=== PATIENT | female | born 1965 | race African-American/Black ===

== ENCOUNTER 2017-02-16 16:49 | Inpatient (IN) | payer BC ==
[~2017-02-16] VITALS: Ht 162.6 cm; Wt 96.2 kg
--- NOTE | ~2017-02-16 | HC ---
[facility] [place] [address] CONSULTATION Name: JARRETT TRINH Room #: 439-P ADM IN M.R.#: [id number] Admission: 02/16/17 Attend Phys: Mahesh Jean-Baptiste MD Discharge: Date of : 67 Report #: [id number] THIS REPORT FOR: //name// CC: Phil Stallings MD REASON FOR CONSULTATION: Mediastinal adenopathy. HISTORY OF PRESENT ILLNESS: The patient is a very pleasant 51-year-old female from the [place] area who this past Friday began having troubles with sweats, heart pounding, chilling, came to the hospital, was also noted to be tachycardic, had fevers to 103. CAT scan shows mediastinal adenopathy up to 4.2 cm including hilar and pre and possibly subcarinal. Before this, she had not been aware of any headache, fevers or chills previous to this last several days, any family members being sick, any shortness of breath, any significant weight change recently, any skin rash, any mouth sores, any swallowing difficulties, any breathing difficulties, any abdominal pain, any diarrhea or constipation, had had what they thought a bladder infection maybe several weeks ago. No new arm or leg swelling. No skin rash. PAST MEDICAL HISTORY: Notable for a history of tubal ligation, diverticulitis, colon surgery for said diverticulitis with Dr. Stallings, tonsillectomy, hypertension, MRSA, abdominal wound in the past, GERD, also oral surgery with full mouth extraction in the past. FAMILY HISTORY: Mother has hypertension. She is present. Father, she does not know much about his history. One brother, alive and well. No sisters. One son, one daughter alive and well. 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 Her mother had worked there for a large number of years also [place] [address] She does smoke. Alcohol, maybe 2 beverages per week[address] No street drugs. MEDICATIONS: Prior to admission had included hydrocodone, sennosides, amlodipine and potassium and also chlorthalidone. CURRENT MEDICATIONS: Include amlodipine 10, potassium chloride 10 b.i.d., Tylenol p.r.n., Zosyn had been given and I believe 1 dose, has now been held. RADIOLOGIC STUDIES: Here included the CTA per PE protocol that says normal pulmonary artery, nothing to suggest pulmonary embolus and aorta is normal, extensive mediastinal adenopathy. Corresponds to radiographic abnormality largest lymph node in the right paratracheal space and measures 4.2 [place] [address] CONSULTATION Name: JARRETT TRINH Room #: 439-P ADM IN M.R.#: [id number] Admission: 02/16/17 Attend Phys: Mahesh Jean-Baptiste MD Discharge: Date of : 67 Report #: [id number] and 3.5 transverse. There are also enlarged lymph nodes in the aorticopulmonary window bilaterally in subcarinal regions, mild superior mediastinal adenopathy as well. Main differential was lymphoma according to them. CT abdomen and pelvis I have now ordered. LABORATORY TESTS: Include sodium on admission of 125, not yet repeat; potassium was 3.9; BUN was 4; creatinine was 1.4; AST 150, note that it had been normal back in 2014; total bilirubin is 0.7; phosphorus 1.6; alkaline phosphatase 160, two years ago, it was normal range at 90; ALT elevated to 100, in the past was 20; albumin is 2.3, in the past had been 3; LDH 327, had not been done before; CPK normal; iron was 22; TIBC 233; percent saturation 9. Coags had been ordered by myself. White count 10.5; hemoglobin 8, back in 12/2015 had been 11.1; MCV is 86, in the past been 90 and 100 at different times; RDW 16.9; platelet count 493, the past had been 400 and 300 range. Differential, nonacute. Sed rate ordered, pending. UA did show rare white cells, rare red cells, 1-9 bacteria. PHYSICAL EXAMINATION: VITAL SIGNS: Height is 5 feet 4 inches, which is 162.6 cm. Weight is 212 pounds, which is 96.2 kilograms. Blood pressure is 136/75, O2 sat 94%, respirations , pulse 120, temperature 100.4, which is the lowest and was 112 earlier today. MOOD: She is alert and pleasant. NEUROLOGIC: Has good speech pattern, is moving all extremities. LUNGS: Clear with good symmetric expansion. No rhonchi or wheezes. HEART: Regular rate. No tachy. LYMPHATICS: No lymph nodes in the supraclavicular, cervical, axillary region. BREASTS: Deferred. The patient states that she is up-to-date on paps and mammograms. ABDOMEN: Obese, nontender, no masses. EXTREMITIES: Without clubbing, cyanosis or edema. DISCUSSION: Discussed with the patient that we are worried about lymphadenopathy, discussed obtaining CT abdomen and pelvis to look for lymphadenopathy there, also talked about having Cardiothoracic Surgery and Pulmonary see the patient with an eye towards possible biopsy. We will also consult GI to evaluate for iron deficiency. The patient states that she eats a regular meat but blood in her urine or stool, is menopausal for at least 2 years and before that her periods were fairly mild with 3 days of spotting and bleeding. ASSESSMENT AND PLAN: 1. Lymphadenopathy, worrisome for malignancy given sweats and fever, though subacute onset may be related to urinary tract infection. We will do a CT abdomen and pelvis. We will also consult Cardiothoracic Surgery and Pulmonary. 2. Iron deficiency with history of diverticulitis and colonoscopy, I think about 3 years ago. We will consult Dr. Delatorre and Dr. Atwood's group [address] [address] CONSULTATION Name: JARRETT TRINH Room #: 439-P ADM IN M.R.#: [id number] Admission: 02/16/17 Attend Phys: Mahesh Jean-Baptiste MD Discharge: Date of : 67 Report #: [id number] before we begin iron. 3. Bacteriuria and fever, need to consider whether to continue antibiotic. 4. Hypertension. Amlodipine as needed. 5. Electrolytes. Now looks like chlorthalidone has been held and potassium replacement has been begun. Will need cereal management. We will follow with you. <ELECTRONICALLY SIGNED> By: Cali Cui MD 04/10/26 805 08 1201 Cali Cui MD /ngozi
--- NOTE | ~2017-02-16 | O ---
[facility] [place] [address] OPERATIVE REPORT Name: JARRETT TRINH Room #: 439-P [facility] IN M.R.#: [id number] Admission: 02/16/17 Attend Phys: Mahesh Jean-Baptiste MD Discharge: 02/21/17 Date of : 67 Report #: [id number] THIS REPORT FOR: //name// CC: Mahesh Jean-Baptiste DATE OF SERVICE: 02/18/2017 PREOPERATIVE DIAGNOSIS: Mediastinal adenopathy. POSTOPERATIVE DIAGNOSIS: Mediastinal adenopathy. OPERATION: Bronchoscopy and mediastinoscopy. SURGEON: Livan Euceda M.D. ANESTHESIA: General. INDICATIONS: The patient is a 51-year-old with mediastinal adenopathy seen in consultation for Dr. Cui. The patient has a CT scan suspicious for lymphoma. FINDINGS AND TECHNIQUE: After general anesthesia was established, exposure was obtained through a low color incision, pretracheal space was entered after dividing a strap muscles in the midline. Plane was developed down into the mediastinum and then the mediastinoscope was passed. Samples of tumor at level 4 were taken and submitted for pathology, generous tumor samples were provided, touched prep was consistent with the lymphoma, but a definitive diagnosis was not obtained. Hemostasis was ascertained and the wound was closed in layers. The patient was return to the recovery area in good condition. It should be mentioned that the outset of the case, flexible diagnostic bronchoscopy was performed. No endobronchial lesions were noted. The patient tolerated the procedure well and was taken to the recovery area in good condition. All counts reported as correct. <ELECTRONICALLY SIGNED> By: Livan Euceda MD 02/21/17 1933 0819 1138 Livan Euceda MD /nt
--- NOTE | ~2017-02-16 | HC ---
[facility] [place] [address] CONSULTATION Name: JARRETT TRINH Room #: 439-P ADM IN M.R.#: [id number] Admission: 02/16/17 Attend Phys: Mahesh Jean-Baptiste MD Discharge: Date of : 67 Report #: [id number] THIS REPORT FOR: //name// CC: Mahesh Jean-Baptiste MD PRIMARY CARE PHYSICIAN: Mahesh Jean-Baptiste M.D. REASON FOR REFERRAL: Mediastinal adenopathy. HISTORY OF PRESENT ILLNESS: The patient is a 51-year-old -[place] female who presented to the Emergency Room with generalized weakness and febrile illness. A CT chest angiogram was performed. No evidence of pulmonary embolus. This study did not show any evidence of pulmonary embolus; however, mediastinal adenopathy was noted. A pulmonary consultation was requested. The patient states that she has been generally healthy most of her life until about a month ago, she started to feel malaise. She was felt to have urinary tract infection. Antibiotics were given. About 3 days ago, she developed febrile illness and chills and shakiness. With worsening symptoms, she presented to the Emergency Department. She otherwise denies any chest pain or productive cough. She denies any diarrhea, dysuria, hematuria or hematochezia. The patient smokes about less than a half a pack a day for the last 20 years. PAST MEDICAL AND SURGICAL HISTORY: Notable for diverticulitis, undergone partial colectomy. She has hypertension, tobacco abuse as mentioned above, history of abdominal wound infection and gastroesophageal reflux disease, bilateral tubal ligation. She has had oral surgery with total tooth extraction. ALLERGIES: None to medications. HOME MEDICATIONS: Include hydrocodone, senna, Norvasc, ____ and chlorthalidone. FAMILY HISTORY: Mother is in good health. Status of the father is unknown. SOCIAL HISTORY: She is single, has 2 children, they are in good health. She smokes half a pack a day. She drinks occasionally. She works as a computer mechanic. REVIEW OF SYSTEMS: As mentioned above, otherwise 10-point system review negative. PHYSICAL EXAMINATION: GENERAL: She is awake and alert, in no apparent distress. [facility] [address] [place] [address] CONSULTATION Name: JARRETT TRINH Room #: 439-P [facility] IN [facility].#: [id number] Admission: 02/16/17 Attend Phys: Mahesh Jean-Baptiste MD Discharge: Date of : 67 Report #: [id number] VITAL SIGNS: Temperature maximum was 103.2 degrees Fahrenheit, currently is 100.3 degrees Fahrenheit, pulse is 125, respiratory rate is 20, blood pressure 138/80 mmHg and saturation is 96%. HEENT: Normocephalic and atraumatic. NECK: Supple, without lymphadenopathy or thyromegaly. CHEST: Breath sounds are clear bilaterally without any rales or wheezes. CARDIOVASCULAR: Normal S1 and S2. There are no murmurs or gallop. There is no JVD. There is no carotid bruit. Pulses are 2+/4+ bilaterally. ABDOMEN: Soft and nontender, no organomegaly or masses felt. GENITOURINARY: Deferred. RECTAL: Deferred. EXTREMITIES: There is no edema, cyanosis or clubbing. LABORATORY DATA: CT chest angiogram was reviewed. No evidence of pulmonary embolus. Extensive mediastinal and hilar adenopathy is noted. No infiltrates or effusion seen. Haptoglobin is mildly elevated at 593. Iron studies showed low iron level. Sodium 125, potassium 3.9, chloride 89, CO2 is 26, BUN is 10, creatinine is 1.4, albumin 2.3, hemoglobin is 8 with normal indices including MCV and MCH. Platelets are normal. IMPRESSION: 1. Mediastinal adenopathy in this 51-year-old -[place] female. She had about a month's history of constitutional symptoms, but for the past 3 days she has had febrile illness without obvious source. She is anemic along with hyponatremia and with renal insufficiency. Primary concern is possible sarcoidosis versus lymphoma. We will proceed with diagnostic workup. 2. Febrile illness. This may be probably related to mediastinal adenopathy. No obvious source of infection at this time. 3. Electrolyte abnormalities including hyponatremia and acute kidney injury. Note that patient has had abnormal creatinine in the past. This is related to febrile illness and pulmonary process. 4. Anemia, currently undergoing workup. 5. Protein calorie malnutrition, severe with an albumin of 2.3. 6. Tobacco abuse. We will discuss smoking cessation on subsequent followup. 7. Hypertension. 8. Gastroesophageal reflux disease. RECOMMENDATIONS: Discussed the above findings with the patient and the rationale for proceeding with endoscopic ultrasound bronchoscopy. The patient voiced understanding and willing to proceed. Once she is stable, we will proceed with biopsy. I think for the meantime, we will continue antibiotics, follow up cultures. Smoking cessation will be recommended. [facility] [address] [place] [address] CONSULTATION Name: JARRETT TRINH Room #: 439-P ADM IN M.R.#: [id number] Admission: 02/16/17 Attend Phys: Mahesh Jean-Baptiste MD Discharge: Date of : 67 Report #: [id number] DVT and GI prophylaxis will be addressed. Thank you for the consultation. <ELECTRONICALLY SIGNED> By: Adrián Walsh MD 02/18/17 1543 1145 1917 Adrián Walsh MD /nt
--- NOTE | ~2017-02-16 | 2DMMODE ---
[facility] [address] [place] [address] 2 D/M-MODE ECHOCARDIOGRAM Name: JARRETT TRINH Room #: 439-P [facility] IN M.R.#: [id number] Admission: 02/16/17 Attend Phys: Mahesh Jean-Baptiste, Discharge: Date of : 67 Date of Service: 02/21/17 0959 Report #: [id number] THIS REPORT FOR: //name// APPROVED REPORT Study performed: 02/21/2017 09:04:35 EXAM: Comprehensive 2D, Doppler, and color-flow Echocardiogram Patient Location: Bedside Room #: 439 Blood Pressure: 133/64 mmHg HR: 117 bpm Rhythm: Tachycardia Other Information Study Quality: Adequate Indications Risk for cardiac dysfunction. Pre chemo evaluation. 2D Dimensions RVDd: 29.95 mm LVEF(%): 67.49 (>50%) IVSd: 10.46 (7-11mm) LVOT Diam: 19.78 (18-24mm) LVDd: 36.45 mm PWd: 10.86 (7-11mm) Ascending Aorta: 26.07 mm LVDs: 23.05 (25-40mm) Aortic Root: 30.25 mm Gonzalez's LVEF: 67.49 % Volumes Left Atrial Volume (Systole) Single Plane 4CH: 30.74 mL Single Plane 2CH: 48.01 mL LA ESV Index: 21.00 mL/m2 Aortic Valve AoV Peak Les.: 1.87 m/s AO Peak Gr.: 14.02 mmHg LV Max P.85 mmHg LV Max: 1.40 m/s Mitral Valve E/A Ratio: 1.1 MV Decel. Time: 139.12 ms MV E Max Les.: 0.90 m/s [facility] [address] [place] [address] 2 D/M-MODE ECHOCARDIOGRAM Name: JARRETT TRINH Room #: 439-[facility] IN .R.#: [id number] Admission: 02/16/17 Attend Phys: Mahesh Jean-Baptiste, Discharge: Date of : 67 Date of Service: 02/21/17 0959 Report #: [id number] A Les.: 0.81 m/s MV PHT: 40.34 ms Pulmonary Valve PV Peak Les.: 1.00 m/s PV Peak Gr.: 4.03 mmHg Tricuspid Valve RAP Estimate: 5.00 mmHg Left Ventricle The left ventricle is normal size. There is normal LV segmental wall motion. There is normal left ventricular wall thickness. Left ventricular systolic function is hyperdynamic. LVEF is 65-70%. Difficult to assess diastolic function due to tachycardia. Right Ventricle The right ventricle is normal size. The right ventricular systolic function is normal. Atria The left atrium size is normal. The right atrium size is normal. Aortic Valve Aortic valve leaflets appear grossly normal No aortic regurgitation is present. There is no aortic valvular stenosis. Mitral Valve The mitral valve is normal in structure. There is no mitral valve regurgitation noted. Tricuspid Valve The tricuspid valve is normal in structure. There is no tricuspid valve regurgitation noted. Pulmonic Valve Pulmonic valve is not well visualized. Great Vessels The aortic root is normal in size. The ascending aorta is normal in size. IVC is normal in size and collapses >50% with inspiration. Pericardium Small pericardial effusion. [facility] [address] [place] [address] 2 D/M-MODE ECHOCARDIOGRAM Name: GAYATHRIJARRETT Room #: 439-P [facility] IN M.R.#: [id number] Admission: 02/16/17 Attend Phys: Mahesh Jean-Baptiste, Discharge: Date of : 67 Date of Service: 02/21/17958 Report #: [id number] <Conclusion> Left ventricular systolic function is hyperdynamic. There is normal LV segmental wall motion. LVEF 65-70%. Aortic valve leaflets appear grossly normal There is no aortic valvular stenosis or insufficiency. The mitral valve is normal in structure. There is no mitral valve regurgitation. Pulmonary artery pressure could not be reliably ascertained. Small pericardial effusion. <ELECTRONICALLY SIGNED> By: Gurvinder Melendez MD, [facility] 02/21/1759 8 0959 Gurvinder Melendez MD, FACC /INF
--- NOTE | ~2017-02-16 | HC ---
[facility] [place] [address] CONSULTATION Name: JARRETT TRINH Room #: 439-P ADM IN M.R.#: [id number] Admission: 02/16/17 Attend Phys: Mahesh Jean-Baptiste MD Discharge: Date of : 67 Report #: [id number] THIS REPORT FOR: //name// CC: Mahesh Jean-Baptiste DATE OF SERVICE: 02/17/2017 The patient's primary care physician is Dr. Mahesh Jean-Baptiste. The patient also is seeing Dr. Cui. HISTORY OF PRESENT ILLNESS: The patient was admitted for weakness and shakiness which started approximately 4 days ago. She has been previously treated for a UTI. PAST MEDICAL HISTORY: As follows: Hypertension, GERD and has had a previous MRSA for abdominal wound. PAST SURGICAL HISTORY: Colon resection for diverticulitis, tubal ligation. SOCIAL HISTORY: The patient is single, has 2 children, smokes half a pack of cigarettes per day for the last 22 years. Occasionally drinks alcohol. Denies any illicit drug use. FAMILY HISTORY: Mother is living and 69 in good health. The patient is unaware of father's status. ALLERGIES: No known drug allergies. MEDICATIONS: As follows: Amlodipine 10 mg and potassium 10 mEq. REVIEW OF SYSTEMS: A 12-point review of systems completed. CONSTITUTIONAL: The patient does have fever and chills with sweats. Denies any fatigue or difficulty sleeping. HEENT: Denies any headaches, vertigo, or hearing loss. RESPIRATORY: Denies shortness of breath, dyspnea on exertion. Denies orthopnea. Does complain of occasional dry cough. CARDIOVASCULAR: Denies chest pain, jaw pain, arm pain or murmurs. SKIN: Denies any rashes, psoriasis or eczema. ENDOCRINE: Denies cold feet. Does have night sweats recently. Denies lack of concentration. GASTROINTESTINAL: Denies nausea, vomiting, diarrhea or constipation. GENITOURINARY: Does have urinary frequency. Denies hematuria or dysuria. NEUROLOGIC: Denies seizures or neuropathy. PSYCHOLOGIC: Denies hallucinations, depression or anxiety. MUSCULOSKELETAL: Joint pain, swelling, stiffness. Denies any leg claudication. IMMUNOLOGIC: Denies any lupus, rheumatoid arthritis or celiac disease. [facility] [address] [place] [address] CONSULTATION Name: JARRETT TRINH Room #: 439-P [facility] IN ..#: [id number] Admission: 02/16/17 Attend Phys: Mahesh Jean-Baptiste MD Discharge: Date of : 67 Report #: [id number] PHYSICAL EXAMINATION: VITAL SIGNS: Blood pressure is 136/75, pulse of 120 in sinus rhythm, sinus tachycardia, respirations 21, temperature is 38.0, O2 sat of 94%. GENERAL: The patient is well developed, well nourished. Has normal speech and mentation. HEENT: Eyes are PERRLA. The patient is normocephalic. Gaze appearing conjugate in all positions. No evidence of nystagmus. CARDIOVASCULAR: Shows regular rate and rhythm, S1, S2, without murmur, gallops, thrills. LUNGS: Clear and equal. ABDOMEN: Soft, nontender. Bowel sounds present in all 4 quadrants. SKIN: Shows normal color and normal turgor. MUSCULOSKELETAL: Has 5/5 strength in upper and lower extremity. NEUROLOGIC: Cranial nerves 2-12 are examined and intact. PSYCHIATRIC: The patient is alert and oriented x 3. LABORATORY DATA: Sodium is 125, potassium 3.9, chloride is 89, CO2 is 26, BUN is 10, creatinine is 1.4. White blood cell count is 10.5, hemoglobin 8.0, hematocrit 23.4, platelets are 439. Alkaline phosphatase is 160, AST is 150 and ALT is 100. ASSESSMENT: 1. Hilar lymphadenopathy. 2. Fevers. 3. Tachycardia. 4. Anemia. 5. Increased LFTs. 6. Hyponatremia. PLAN: The patient is scheduled for CT abdomen and pelvis today. Dr. Euceda will follow up and discuss with the patient regarding mediastinoscopy and possible scheduling of this surgery. He will also discuss complications and risks, benefits with the patient as well. Thank you for the consultation. By: 1134 [id number] DAVID Clemons /nt
--- NOTE | ~2017-02-16 | EKG ---
[address] [place] [place] [address] ELECTROCARDIOGRAM REPORT Name: JARRETT TRINH Room #: 439-P ADM IN M.R.#: [id number] Admission: 02/16/17 Attend Phys: Mahesh Jean-Baptiste MD Discharge: Date of : 67 Report #: [id number] THIS REPORT FOR: //name// [facility] ED Test Date: 2017-02-16 Test Time: 17:05:32 Pat Name: JARRETT TRINH Department: Room: 439 Gender: F Molder Trimmer: [place] : 1965 Requested By: Leigh Ann Shultz Order Number: [id number] MD: Gurvinder Melendez Measurements Intervals [place] Rate: 153 P: 79 TX: 136 QRS: 77 QRSD: 75 T: 0 QT: 249 QTc: 398 Interpretive Statements Sinus tachycardia Poor R wave progression No previous ECG available for comparison Electronically Signed On 02-17-2017 8:31:41 CDT by Gurvinder Melendez [email or web address] <ELECTRONICALLY SIGNED> By: Gurvinder Melendez MD, [facility] 02/17/17 0831 1705 1705 Gurvinder Melendez MD, FACC /EPI
--- NOTE | ~2017-02-16 | S ---
[facility] [address] [place] [address] SURGICAL PATH RPT PROCEDURE Name: JARRETT TRINH Room #: 439-P [facility] IN M.R.#: [id number] Admission: 02/16/17 Date of : 67 Discharge: Report #: [id number] Path Case #: [id number] PATHOLOGY REPORT COLLECTION DATE: 02/18/2017 RECEIVED DATE: 02/18/2017 SUBMITTING PHYS: Dr. Livan Euceda OTHER PHYS: Dr. Mahesh Jean-Baptiste SPECIMEN(S) RECEIVED: A.Right paratracheal lymph node - tp B.Right paratracheal lymph node * * * * * * * * * * * * FINAL DIAGNOSIS: A. "Right paratracheal lymph node-tp," biopsy: - LYMPH NODE WITH CLASSIC HODGKIN LYMPHOMA. (SEE COMMENT) B. "Right paratracheal lymph node," biopsy: - LYMPH NODE WITH CLASSIC HODGKIN LYMPHOMA. (SEE COMMENT) SYNOPTIC CANCER STAGING REPORT SPECIMEN Specimen: Lymph node(s) Procedure: Biopsy Tumor Site: Lymph node(s) -Specify Site(s): right paratracheal lymph node TUMOR Histologic Type (based on the 2008 WHO classification): Mixed cellularity classical Hodgkin lymphoma SPECIAL STUDIES Immunophenotyping (immunohistochemistry): Performed -Specify Methods(s) and Results: immunohistochemistry; see comment COMMENT: Sections show biopsy fragments of tissue with an atypical lymphoid infiltrate. Numerous large atypical lymphoid cells are identified. Mononucleate, binucleate, and multinucleate forms are noted. Enlarged nuclei have irregular nuclear contours and hyperchromatic, clumped to vesicular chromatin. Variably conspicuous large nucleoli are also noted. Moderate to abundant cytoplasm is present. Admixed small mature appearing lymphocytes are seen in the background. Plasma cells, histiocytes and rare granulocytes are also seen. Due to the inconclusive flow cytometry findings and to identify cells [address] [address] SURGICAL PATH RPT PROCEDURE Name: JARRETT TRINH Room #: 439-P [facility] IN .R.#: [id number] Admission: 02/16/17 Date of : 67 Discharge: Report #: [id number] Path Case #: [id number] in a tissue architectural context, properly controlled immunohistochemical stains are performed. (Block B1) CD30: atypical cells reactive CD15: atypical cells reactive PAX-5: atypical cells weakly reactive CD3: atypical cells non-reactive; highlights admixed T cells MUM-1: atypical cells reactive Alk-1: atypical cells non-reactive CD4: atypical cells non-reactive CD43: atypical cells non-reactive Flow cytometric immunophenotypic analysis was performed at [facility]. The diagnosis is "no immunophenotypic evidence for non-Hodgkin lymphoma detected." There are 95.5% lymphocytes. Of the lymphocytes, there are 75% T cells with a CD4/CD8 ratio of 1.3 and no aberrant T-cell antigen expression and 23% polyclonal B-cells (kappa:lambda ratio of 1.59). No immunophenotypic evidence for B-cell or T-cell non-Hodgkin lymphoma is detected in the specimen. Please see separate flow cytometry report from [facility] ([id number]). Overall, the diagnosis of both specimens is lymph node with classic Hodgkin lymphoma. Due to the fragmented nature, subclassification is difficult to determine, but it is favored to be mixed cellularity subtype. Clinical and radiographic correlation is recommended. The case is co-reviewed with Dr. Kim Razo. The case was discussed preliminarily with Dr. Livan Euceda on 02/19/17 at 12:30 PM and discussed with Dr. Cali Cui on 02/20/17 at approximately 5:00 PM. (CLW:; d/t: 02/19/17) PATHOLOGIST: Valarie Du M.D. REPORT ELECTRONICALLY SIGNED BY: Valarie Du M.D. DATE/TIME: 02/20/2017 17:24 * * * * * * * * * * * * GROSS PATHOLOGY: A. The first specimen is received fresh from the OR labeled, "right paratracheal lymph node fresh touch prep." It consists of multiple irregularly shaped soto white soft tissue fragments measuring 0.6 x 0.6 x 0.4 cm in aggregate. Touch imprints are performed (1 air dried and 1 alcohol fixed for immediate evaluation). A portion of fresh tissue is reserved in RPMI and sent for flow cytometry. The remaining tissue is entirely submitted as A1. B. The second specimen is received in formalin labeled, "Jarrett Trinh, right paratracheal node formalin." It consists of multiple irregularly shaped soto white soft tissue fragments measuring 1.5 x 1.0 x 0.5 cm in aggregate. The entire specimen is submitted as B1. [address] [address] SURGICAL PATH RPT PROCEDURE Name: JARRETT TRINH Room #: 439-P ADM IN M.R.#: [id number] Admission: 02/16/17 Date of : 67 Discharge: Report #: [id number] Path Case #: [id number] (CLW:mgr; d/t: 02/18/17) INTRAOPERATIVE CONSULTATION Touch Prep: (Farhana Du M.D.) A. "Right paratracheal lymph node": - Atypical lymphoid infiltrate; will send for flow cytometry. The case was discussed with Dr. Livan Euceda in the frozen section area, and a written report is placed in the patient's chart. (CLW:; d/t: 02/18/17) Testing performed by [facility] at [facility] [address] [place] [address] CLINICAL HISTORY: Mediastinal adenopathy INITIAL CPT CODE(S): A; 19276, 99573 B; 62910, 93936, 58967, 27893, 32794, 07962, 93264, 71393, 04061 Professional services performed by [facility] at [facility] [address] [place] [address] Technical services performed by [facility] at [address] [place] [address], [address], [place] [address]. [facility] [address] [address] PHONE: [phone] DIRECTOR: Jame Anglin M.D. * * * END OF REPORT * * *
--- NOTE | ~2017-02-16 | H ---
[facility] [address] [address] HISTORY AND PHYSICAL Name: JARRETT TRINH Room #: 439-P ADM IN M.R.#: [id number] Admission: 02/16/17 Attend Phys: Mahesh Jean-Baptiste MD Discharge: Date of : 67 Report #: [id number] THIS REPORT FOR: //name// CC: Mahesh Jean-Baptiste DATE OF SERVICE: 02/17/2017 CHIEF COMPLAINT: Weakness and shakiness. HISTORY OF PRESENT ILLNESS: The patient is a 51-year-old female who presented to the ER with increasing weakness and shakiness. It started about 4 days ago. She had some sweats and possibly fevers. She had not been her temperature, however. She just does not feel well overall. She does have UTI recently and was treated with Bactrim, but has finished that. She had some lab done Friday, which was still pending. PAST MEDICAL HISTORY: Significant for hypertension, reflux, prior MRSA, prior ventral hernia, diverticulitis with colon resection for that, tonsillectomy, and MRSA in 2014, for an abdominal wound. MEDICATIONS: Amlodipine 10 mg a day and potassium 10 mEq a day. ALLERGIES: No known drug allergies. SOCIAL HISTORY: She smokes cigarettes about half pack a day. She drinks alcohol occasionally. No recreational drugs. REVIEW OF SYSTEMS: CONSTITUTIONAL: Positive for fevers, chills, and sweats. HEENT: No headaches or visual changes. CHEST: She has an occasional cough. No significant shortness of breath. CARDIAC: She does have the rapid heart rate and palpitations. GASTROINTESTINAL: No nausea or vomiting. GENITOURINARY: The recent UTI. EXTREMITIES: No swelling or joint pain. SKIN: No rashes or wounds. NEUROLOGIC: No new numbness or weakness. PHYSICAL EXAMINATION: VITAL SIGNS: Blood pressure 137/69, pulse was 135 in the ER, respiratory rate is 20, she is 100% saturated, and weighs 212 pounds. GENERAL: She is awake and alert, in no acute distress. HEENT: Her mucous membranes are moist. NECK: Supple without adenopathy, thyromegaly, or bruits. CHEST: Clear to auscultation bilaterally. CARDIOVASCULAR: Regular rhythm without murmur, but she is tachycardic. [address] [address] HISTORY AND PHYSICAL Name: JARRETT TRINH Room #: 9-[facility] IN M.R.#: [id number] Admission: 02/16/17 Attend Phys: Mahesh Jean-Baptiste MD Discharge: Date of : 67 Report #: [id number] ABDOMEN: Obese, soft, no masses. Bowel sounds are active. EXTREMITIES: Show no edema. Pulses are intact bilaterally. NEUROLOGIC: Grossly intact. Sensory is grossly intact. LABORATORY DATA: EKG shows sinus tachycardia, no ST segment changes. Sodium is 125, chloride is 89, potassium is 3.9, chloride is 89, bicarbonate 25, BUN 10, creatinine 1.4, glucose 151, calcium 8.9, AST 150, ALT 100, alkaline phosphatase 160, troponin less than 0.04. Total protein 8.2 and albumin 2.3. WBC is 10.5, hemoglobin 8.0, hematocrit 23.4, platelet count 493, segs 77, and lymphs 10. Chest x-ray shows right peritracheal mass. CT scan of the chest shows no aortic dissection or pulmonary embolism, but there is mediastinal hilar adenopathy. ASSESSMENT: 1. Hilar lymphadenopathy. 2. Fever. 3. Anemia. 4. Elevated liver function test. 5. Tachycardia. PLAN: We will be admitting, consulting oncology Dr. Cui certainly concerning for lymphoma. We will go ahead and setup CTs of her abdomen and pelvis, we can do a biopsy, Dr. Cui discussing giving the iron IV as well. We will monitor closely regarding the CTs and of biopsy. Regarding tachycardia, we will hydrate and monitor for arrhythmia. By: [id number] [id number] Mahesh Jean-Baptiste MD /nt
[~2017-02-16 16:49] MED LIST: ALEVE220 MG; CARISOPRODOL 3350 MG PO; CHLORTHALIDONE25 MG PO; CIPRO500 MG PO; DIFLUCAN200 MG PO; FLAGYL500 MG PO; HYDROCODONE-AP1 EAC6 PO; INVANZ 1GM/NS 101 GM IV; KLOR-CON 1010 MEQ PO; NOHOMEMEDICATIONS; NORCO 5-325 TA1 EACH PO; NORVASC10 MG PO; POTASSIUM20 PO; PREDNISONE 10 M10 MG PO; SENNA-S TABLET1 EACH PO; TYLENOL325 MG PO; VANCOMYCIN1.25 GM/21 IV
[2017-02-16 16:50] VITALS: BP 137/69
[2017-02-16 17:27] LABS: ABSOLUTE NEUTROPHILS 8.2 thou/uL (1.4-8.2); HEMATOCRIT 23.4 % (37.0-47.0); LYMPHOCYTES 9.8 % (24.0-44.0); MCH 29.6 pg (26.0-34.0); MCHC 34.4 g/dL (28.0-37.0); MCV 86.1 fL (80.0-100.0); MONOCYTES 11.7 % (1.0-8.0); PLATELET COUNT 493 thou/uL (150-400); POLYS 77.5 % (36.0-66.0); RBC 2.72 mil/uL (4.20-5.00); RDW 16.9 % (10.5-14.5); WBC 10.5 thou/uL (4.0-11.0)
[2017-02-16 17:32] LABS: MANUAL DIFF NO
[2017-02-16 17:44] LABS: ALBUMIN 2.3 g/dL (3.4-5.0); ALKALINE PHOSPHATASE 160 U/L (46-116); ANION GAP 10 mmol/L (7-16); BUN 10 mg/dL (7-18); CALCIUM 8.9 mg/dL (8.5-10.1); CHLORIDE 89 mmol/L (98-107); CO2 26 mmol/L (21-32); CREATININE 1.4 mg/dL (0.6-1.0); GLUCOSE 151 mg/dL (74-106); POTASSIUM 3.9 mmol/L (3.5-5.1); SGOT 150 U/L (15-37); SGPT 100 U/L (30-65); SODIUM 125 mmol/L (136-145); TOTAL BILIRUBIN 0.7 mg/dL (<0.1-1.0); TOTAL PROTEIN 8.2 g/dL (6.4-8.2); TROPONIN-I < 0.04 ng/mL (<0.04-0.07)
[2017-02-16 17:57] LABS: URINE BILIRUBIN NEGATIVE (Negative); URINE BLOOD 1+ (Negative); URINE COLOR YELLOW; URINE GLUCOSE-RANDOM* NEGATIVE (Negative); URINE KETONES NEGATIVE (Negative); URINE NITRITE NEGATIVE (Negative); URINE PROTEIN (DIPSTICK) 1+ (Negative); URINE UROBILINOGEN >= 8.0 E.U./dl (0.2-1.0)
[2017-02-16 18:06] LABS: CASTS None Seen /LPF (None Seen); SQUAMOUS >10 Many /LPF (0-3)
[2017-02-16 18:07] LABS: BACTERIA 1-9 Few /HPF (None Seen); CRYSTALS None Seen /LPF (None Seen); URINE RBC 0-2 Rare /HPF (0-2); URINE WBC 0-5 Rare /HPF (0-5)
[2017-02-16 18:35] LABS: % SATURATION 9 % (20-39); IRON 22 ug/dL (50-170); TIBC 233 ug/dL (250-450); UIBC 211 ug/dL
[2017-02-16 18:49] LABS: MAGNESIUM 1.9 mg/dL (1.8-2.4); PHOSPHORUS 1.6 mg/dL (2.5-4.9)
[2017-02-16 20:24] VITALS: BP 114/75
[2017-02-16 20:38] VITALS: BP 132/69
[2017-02-17] VITALS: BP 147/64
[2017-02-17 04:24] VITALS: BP 124/59
[2017-02-17 07:22] VITALS: BP 136/75
[2017-02-17 11:13] VITALS: BP 138/80
[2017-02-17 12:08] LABS: APTT 36.9 Seconds (24.5-32.8); INR 1.3; PROTIME 13.6 Seconds (9.3-11.4)
[2017-02-17 12:38] LABS: FOLIC ACID 6.6 ng/mL (8.6-58.9); TSH 0.814 uIU/mL (0.358-3.740)
[2017-02-17 15:06] VITALS: BP 157/60
[2017-02-17 20:29] VITALS: BP 116/63
[2017-02-18] VITALS (7 sets, daily range): BP systolic 114–136; BP diastolic 58–72
[2017-02-18 06:10] LABS: HEMATOCRIT 23.2 % (37.0-47.0); HEMOGLOBIN 8.1 gm/dL (12.0-15.0); MCH 30.2 pg (26.0-34.0); MCV 86.2 fL (80.0-100.0); RBC 2.69 mil/uL (4.20-5.00); RDW 17.3 % (10.5-14.5); WBC 9.4 thou/uL (4.0-11.0)
[2017-02-18 06:35] LABS: CALCIUM 8.7 mg/dL (8.5-10.1); CREATININE 1.1 mg/dL (0.6-1.0); POTASSIUM 3.8 mmol/L (3.5-5.1)
[2017-02-19 03:58] VITALS: BP 109/54
[2017-02-19 05:37] LABS: CALCIUM 8.3 mg/dL (8.5-10.1); CREATININE 1.2 mg/dL (0.6-1.0); POTASSIUM 3.8 mmol/L (3.5-5.1)
[2017-02-19 07:55] VITALS: BP 144/76
[2017-02-19 09:37] LABS: HEMATOCRIT 21.4 % (37.0-47.0); HEMOGLOBIN 7.3 gm/dL (12.0-15.0); MCH 29.6 pg (26.0-34.0); MCV 87.1 fL (80.0-100.0); RBC 2.46 mil/uL (4.20-5.00); RDW 17.4 % (10.5-14.5); WBC 13.2 thou/uL (4.0-11.0)
[2017-02-19 14:27] VITALS: BP 138/61
[2017-02-19 16:28] VITALS: BP 153/73
[2017-02-19 19:35] VITALS: BP 139/76
[2017-02-20 05:51] LABS: ALBUMIN 1.7 g/dL (3.4-5.0); DIRECT BILIRUBIN 0.3 mg/dL (<0.1-0.3); TOTAL BILIRUBIN 0.5 mg/dL (<0.1-1.0); TOTAL PROTEIN 5.8 g/dL (6.4-8.2)
[2017-02-20 06:11] LABS: WBC 7.8 thou/uL (4.0-11.0)
[2017-02-20 06:12] LABS: MCH 29.3 pg (26.0-34.0); MCHC 34.2 g/dL (28.0-37.0); MCV 85.8 fL (80.0-100.0); RBC 2.3 mil/uL (4.20-5.00); RDW 17.5 % (10.5-14.5)
[2017-02-20 06:24] LABS: HEMATOCRIT 19.8 % (37.0-47.0); HEMOGLOBIN 6.8 gm/dL (12.0-15.0)
[2017-02-20 06:55] LABS: CALCIUM 7.7 mg/dL (8.5-10.1); POTASSIUM 4.1 mmol/L (3.5-5.1)
[2017-02-20 07:06] LABS: CREATININE 1.1 mg/dL (0.6-1.0)
[2017-02-20 08:16] VITALS: BP 118/57
[2017-02-20 11:55] VITALS: BP 132/68
[2017-02-20 16:17] VITALS: BP 119/66
[2017-02-20 19:35] VITALS: BP 134/53
[2017-02-21 04:50] VITALS: BP 169/76
[2017-02-21 08:15] VITALS: BP 133/64
[2017-02-21] MEDS ORDERED: HYDROCODON-ACE1 EAC7 PO (12:40)
[2017-02-21] MEDS ORDERED: ATIVAN1 MG PO (12:40)
[2017-02-21 13:17] VITALS: BP 133/64
[2017-02-21 22:10] LABS: HIV ANTIBODY Non Reactive (Non Reactive)
== END 2017-02-21 14:58 | disposition home or self-care (01) | DRG 840 ==
LOC: ER 16:49 → 4S 19:54 → EROBS 19:54 → 4S 20:25
PROVIDERS: Emergency Medicine; Family Medicine; Internal Medicine Gastroenterology; Internal Medicine Hematology & Oncology; Internal Medicine Pulmonary Disease; Nurse Practitioner Adult Health; Nurse Practitioner Family; Physician Assistant
PROC: 0WBC4ZX Excision of Mediastinum, Percutaneous Endoscopic Approach, Diagnostic (ICD-10-PCS; principal; 2017-02-18)
PROC: 0BJ08ZZ Inspection of Tracheobronchial Tree, Via Natural or Artificial Opening Endoscopic (ICD-10-PCS; principal; 2017-02-18)
DX: C81.90 Hodgkin lymphoma, unspecified, unspecified site (principal); E43 Unspecified severe protein-calorie malnutrition; E87.1 Hypo-osmolality and hyponatremia; K21.9 Gastro-esophageal reflux disease without esophagitis; D64.9 Anemia, unspecified; R00.0 Tachycardia, unspecified; R59.1 Generalized enlarged lymph nodes; R82.71 Bacteriuria; F17.210 Nicotine dependence, cigarettes, uncomplicated; R59.0 Localized enlarged lymph nodes; D50.9 Iron deficiency anemia, unspecified; E87.6 Hypokalemia; I11.9 Hypertensive heart disease without heart failure; Z90.49 Acquired absence of other specified parts of digestive tract; Z82.49 Family history of ischemic heart disease and other diseases of the circulatory system; Z68.36 Body mass index [BMI] 36.0-36.9, adult
CPT/HCPCS: 10100; 50010; 50101; 50386; 50403; 54118; 56524; 56526; 62110; 62900; 70005

== ENCOUNTER → 2017-02-27 | Outpatient (CLI) | payer BC ==
[~2017-02-27] VITALS: Ht 162.6 cm; Wt 102.1 kg
[~2017-02-27] MED LIST changes: +ATIVAN1 MG PO; +HYDROCODON-ACE1 EAC7 PO
--- NOTE | ~2017-02-27 | S ---
[facility] [address] [place] [address] SURGICAL PATH RPT PROCEDURE Name: JARRETT TRINH Room #: [facility] Bobby#: [id number] Admission: 02/27/17 Date of : 67 Discharge: Report #: [id number] Path Case #: [id number] PATHOLOGY REPORT DRAFT COLLECTION DATE: 02/27/2017 RECEIVED DATE: 02/27/2017 SPECIMEN(S) RECEIVED: A.Bone marrow, clot B.Bone marrow, biopsy C.Bone marrow, aspirate smears D.Peripheral smear
[2017-02-27 09:41] VITALS: BP 113/69
[2017-02-27 10:02] LABS: HEMATOCRIT 24.4 % (37.0-47.0); HEMOGLOBIN 7.8 gm/dL (12.0-15.0); MANUAL DIFF YES; MCH 29.6 pg (26.0-34.0); MCHC 32.2 g/dL (28.0-37.0); MCV 91.8 fL (80.0-100.0); PLATELET COUNT 750 thou/uL (150-400); RBC 2.65 mil/uL (4.20-5.00); RDW 19.7 % (10.5-14.5); WBC 5.7 thou/uL (4.0-11.0)
[2017-02-27 10:18] LABS: POTASSIUM 4.1 mmol/L (3.5-5.1)
[2017-02-27 10:20] LABS: APTT 33.3 Seconds (24.5-32.8); INR 1.2; PROTIME 12.9 Seconds (9.3-11.4)
[2017-02-27 10:21] LABS: ABSOLUTE NEUTROPHILS 3.2 thou/uL (1.4-8.2); PLATELET ESTIMATE INCREASED; TOTAL CELL COUNT 100
[2017-02-27 10:22] LABS: ANISOCYTOSIS 2+; HYPOCHROMASIA 2+; MICROCYTES 1+
== END ==
LOC: SPEC 08:20 → LABMALL 08:20 → SPEC 11:01
PROVIDERS: Radiology Vascular & Interventional Radiology
DX: Z45.2 Encounter for adjustment and management of vascular access device (principal); K57.30 Diverticulosis of large intestine without perforation or abscess without bleeding; I10 Essential (primary) hypertension; F17.200 Nicotine dependence, unspecified, uncomplicated; K21.9 Gastro-esophageal reflux disease without esophagitis; I49.9 Cardiac arrhythmia, unspecified; C85.80 Other specified types of non-Hodgkin lymphoma, unspecified site

== ENCOUNTER → 2017-05-08 | Outpatient (CLI) | payer BC ==
[~2017-05-08] VITALS: Ht 165.1 cm; Wt 95.3 kg
[2017-05-08 11:29] VITALS: BP 124/78
[2017-05-08 11:55] LABS: HEMATOCRIT 33.9 % (37.0-47.0); HEMOGLOBIN 11.5 gm/dL (12.0-15.0); MCH 31.6 pg (26.0-34.0); MCHC 33.9 g/dL (28.0-37.0); MCV 93.3 fL (80.0-100.0); RBC 3.63 mil/uL (4.20-5.00); RDW 18.4 % (10.5-14.5); WBC 4.6 thou/uL (4.0-11.0)
[2017-05-08 12:02] LABS: APTT 28.7 Seconds (24.5-32.8); PROTIME 10.4 Seconds (9.3-11.4)
== END | disposition home or self-care (01) ==
LOC: SPEC 11:11
PROVIDERS: Radiology Vascular & Interventional Radiology
DX: T85.698A Other mechanical complication of other specified internal prosthetic devices, implants and grafts, initial encounter (principal); C85.90 Non-Hodgkin lymphoma, unspecified, unspecified site; I10 Essential (primary) hypertension; D64.9 Anemia, unspecified; K21.9 Gastro-esophageal reflux disease without esophagitis; Z87.891 Personal history of nicotine dependence; Z98.890 Other specified postprocedural states; Y83.8 Other surgical procedures as the cause of abnormal reaction of the patient, or of later complication, without mention of misadventure at the time of the procedure

== ENCOUNTER → 2017-10-06 | Outpatient (CLI) | payer OTHER ==
[~2017-10-06] VITALS: Ht 167.6 cm; Wt 105.2 kg
[2017-10-06 08:34] VITALS: BP 129/79
== END | disposition home or self-care (01) ==
LOC: SPEC 10-01 08:06
DX: T85.698A Other mechanical complication of other specified internal prosthetic devices, implants and grafts, initial encounter (principal)